=== PATIENT | female | born 1965 | race Caucasian/White ===

== ENCOUNTER 2018-12-30 05:07 | Emergency (ER) | payer BC, OTHER ==
[~2018-12-30] VITALS: Ht 165.1 cm; Wt 63.5 kg
[~2018-12-30 05:07] MED LIST: ALPR1 PO; Celexa40 MG PO; LISI20 PO; PROACE100 PO; TOPI25 PO; VALA500 PO
[2018-12-30] MEDS ORDERED: HYDR1TAB94 PO (05:21)
[2018-12-30] MEDS ORDERED: TRAZ150T57 PO (05:26)
[2018-12-30 05:28] LABS: BASOPHILS ABSOLUTE AUTO 0.05 K/mm3 (0.00-0.23); BASOPHILS PERCENT AUTO 0 % (0-2); EOSINOPHILS ABSOLUTE AUTO 0.12 K/mm3 (0.00-0.68); EOSINOPHILS PERCENT AUTO 1 % (0-6); Hematocrit 44.3 % (33.0-51.0); Hemoglobin 14.5 g/dL (11.5-16.0); IMMATURE GRAN ABSOLUTE AUTO 0.02 K/mm3 (0.00-0.10); IMMATURE GRAN PERCENT AUTO 0 % (0-1); LYMPHOCYTES ABSOLUTE AUTO 4.43 K/mm3 (0.84-5.20); LYMPHOCYTES PERCENT AUTO 32 % (21-46); MONOCYTES ABSOLUTE AUTO 1.08 K/mm3 (0.16-1.47); MONOCYTES PERCENT AUTO 8 % (4-13); Mean Corpuscular HGB Conc 32.7 g/dL (31.5-36.5); Mean Corpuscular Volume 89 fL (80-100); Mean Platelet Volume 9.2 fL (9.1-12.4); NEUTROPHILS ABSOLUTE AUTO 8.32 K/mm3 (1.96-9.15); NEUTROPHILS PERCENT AUTO 59 % (41-73); Platelet Count 253 K/mm3 (150-400); RDW Coefficient Variation 12.5 % (11.7-14.2); RDW Standard Deviation 40.9 fL (35.1-46.3); White Blood Cell Count 14.02 K/mm3 (4.00-11.30)
[2018-12-30 05:33] LABS: Source, Urine Clean Catch
[2018-12-30 05:35] LABS: Bilirubin, Urine Neg (Neg); Blood, Urine 1+ (Neg); Glucose Qualitative, Urine Neg (Neg); Ketones, Urine 2+ (Neg); Leukocyte Esterase, Urine 1+ (Neg); Nitrite, Urine Neg (Neg); Protein, Urine 1+ (Neg); Specific Gravity, Urine 1.025 (1.003-1.022); Urobilinogen, Urine 2+ (Normal)
[2018-12-30 05:49] LABS: Alanine Aminotransfer (ALT/SGP 15 U/L (12-78); Albumin, Blood 3.9 g/dL (3.4-5.0); Albumin/Globulin Ratio 1.2 (0.8-1.8); Alk Phos 89 U/L (50-136); Anion Gap 6 mmol/L (6-16); Aspartate Aminotrans (AST/SGOT 11 U/L (12-37); Bilirubin, Total 0.3 mg/dL (0.1-1.0); Blood Urea Nitrogen 13 mg/dL (8-24); Bun/Creatinine Ratio 15.5 (12.0-20.0); CO2, Blood 27 mmol/L (21-32); Calcium, Blood 8.8 mg/dL (8.5-10.1); Chloride, Blood 109 mmol/L (98-108); Creatinine, Blood 0.84 mg/dL (0.40-1.00); Globulin, Blood 3.3 g/dL (2.2-4.0); Glomerular Filtration Rate >60 (60-); Glucose, Blood 103 mg/dL (70-99); Potassium, Blood 3.9 mmol/L (3.5-5.5); Sodium, Blood 142 mmol/L (136-145); Total Protein, Blood 7.2 g/dL (6.4-8.2)
[2018-12-30 05:50] LABS: Appearance, Urine Clear (Clear); Color, Urine Yellow (P-Yellow)
[2018-12-30 05:54] LABS: Bacteria Rare /hpf; Mucus Light (0-Heavy); Squamous Epithelial Cells Few /hpf (Few); White Blood Cells, Urine 0-2 /hpf (0-5)
== END 2018-12-30 06:46 | disposition home or self-care (01) ==
LOC: ER 05:07
PROVIDERS: Emergency Medicine
DX: K92.2 Gastrointestinal hemorrhage, unspecified (principal); Z79.899 Other long term (current) drug therapy; I10 Essential (primary) hypertension; F32.9 Major depressive disorder, single episode, unspecified; F17.200 Nicotine dependence, unspecified, uncomplicated
CPT/HCPCS: 80053; 81001; 83690; 85025; 87086; 99283

== ENCOUNTER → 2019-01-04 | Outpatient (CLI) | payer BC, OTHER ==
[~2019-01-04] MED LIST changes: +ABILIFY MYCITE2 MG; +CITA20; +HYDR1TAB94 PO; +TRAZ150T57 PO
== END | disposition home or self-care (01) ==
LOC: LAB SHORT 16:12 → LAB EV 16:12
DX: M25.519 Pain in unspecified shoulder (principal)
CPT/HCPCS: G0480

== ENCOUNTER 2019-02-04 12:55 | Day surgery (SDC) | payer BC, OTHER ==
[~2019-02-04] VITALS: Ht 165.1 cm; Wt 58.2 kg
[~2019-02-04 12:55] MED LIST changes: -ABILIFY MYCITE2 MG; -CITA20
[2019-02-04] MEDS ORDERED: ABILIFY MYCITE2 MG (13:23)
[2019-02-04] MEDS ORDERED: CITA20 (13:24)
--- NOTE | 2019-02-04 13:35 | NUR ---
02/04/19 1335 Roxy Gardiner 1 TRY RIGHT HAND VEIN WITH VALVE 2 AC RIGHT ARM GOOD
--- NOTE | 2019-02-04 14:38 | NUR ---
02/04/19 1438 Ifrah Townsend LIDOCAINE JELLY APPLIED TO BUTTOCKS POST-PROCEDURE FOR PATIENT'S 9/10 PAIN RELATED TO PREP.
--- NOTE | 2019-02-04 16:25 | NUR ---
02/04/19 1625 Ifrah Townsend (Ximena 1445: PT INTO RECOVERY, AWAKE AND DENIES PAIN. VITAL SIGNS AT BASELINE, WNL. DR. MCCALLUM INTO ROOM TO CONSULT POST-PROCEDURE. 1456: PT STATES 9/10 ABD PAIN/CRAMPING. THIS NURSE PROVIDED NEW WARM BLANKET, REPOSITIONED, HOT PACK PROVIDED TO PLACE ON ABD, HOT TEA PROVIDED TO HELP WITH CRAMPING. SPOUSE AT BEDSIDE COMFORTING PATIENT. FLACC SCORE OF 2. 1502: VSS; 110/66, 77BPM, 100%, 22R. 1508: VSS; 116/55, 76BPM, 100%, 18R. PT RESTING IN BED, FLACC SCORE OF 2. SPOUSE ATTEMPTING TO CONSOLE PT, RUBBING BACK. 1520: THIS NURSE AND PT SPOUSE SBA PT WITH WALKING IN HALLWAY, X2, IN ATTEMPTS OF IMPROVING ABD CRAMPS. PT STATES NO CHANGE IN PAIN, 9/10. DR. MCCALLUM NOTIFIED OF PATIENT'S COMPLAINT & STATUS. DR. MCCALLUM STATES IS OKAY FOR DISCHARGE. PT AND SPOUSE UPDATED WITH DR. MCCALLUM CONSULT. PT STATES PAIN HAS "SLIGHTLY IMPROVED" TO 8/10, AND "JUST WANTS TO GO HOME." SPOUSE ASSISTED PT IN DRESSING, PER PATIENT'S REQUEST.
== END 2019-02-04 15:45 | disposition home or self-care (01) ==
LOC: ORSCSDS 12:55
PROVIDERS: Surgery
PROC: 0DJD8ZZ Inspection of Lower Intestinal Tract, Via Natural or Artificial Opening Endoscopic (ICD-10-PCS; principal; 2019-02-04 14:15)
DX: R10.84 Generalized abdominal pain (principal); K62.5 Hemorrhage of anus and rectum; K64.1 Second degree hemorrhoids; I10 Essential (primary) hypertension; J45.909 Unspecified asthma, uncomplicated; F17.210 Nicotine dependence, cigarettes, uncomplicated; Z79.899 Other long term (current) drug therapy
CPT/HCPCS: J2704; J7120

== ENCOUNTER 2021-12-03 07:32 | Day surgery (SDC) | payer OTHER ==
[~2021-12-03] VITALS: Ht 165.1 cm; Wt 68.0 kg
[~2021-12-03 07:32] MED LIST changes: +ABILIFY MYCITE2 MG; +CITA20
[2021-12-03] MEDS ORDERED: METF500 (08:07)
== END 2021-12-03 10:52 | disposition home or self-care (01) ==
LOC: ORSCSDS 07:32
PROVIDERS: Orthopaedic Surgery
PROC: 0LX70ZZ Transfer Right Hand Tendon, Open Approach (ICD-10-PCS; principal; 2021-12-03 08:45)
DX: M18.11 Unilateral primary osteoarthritis of first carpometacarpal joint, right hand (principal); I10 Essential (primary) hypertension; Z87.891 Personal history of nicotine dependence; E11.9 Type 2 diabetes mellitus without complications; Z79.84 Long term (current) use of oral hypoglycemic drugs; F41.9 Anxiety disorder, unspecified; Z79.899 Other long term (current) drug therapy
CPT/HCPCS: 82947; A9270; C1713; J0690; J1100; J2250; J2370; J2405; J2704; J2795; J3010; J7120

== ENCOUNTER 2022-07-01 08:37 | Inpatient (IN) | payer OTHER ==
[~2022-07-01] VITALS: Ht 165.1 cm; Wt 71.5 kg
[~2022-07-01 08:37] MED LIST changes: -ABILIFY MYCITE2 MG; +ABILIFY MYCITE2 MG PO; +METF500 PO
[2022-07-01] MEDS ORDERED: BUPR150ER PO (09:14)
[2022-07-01] MEDS ORDERED: DULO60 PO (09:15)
[2022-07-01] MEDS ORDERED: SUMA25 PO (09:16)
[2022-07-01] MEDS ORDERED: ALBU90OI61 INH (09:17)
[2022-07-01] MEDS ORDERED: ONELAX10 MG (09:17)
--- NOTE | 2022-07-01 18:20 | NUR ---
PT STATUS CHANGE TO PCU BED AVAILABLE, REPORT CALLED TO DALE LEY. PT IS A/O, ON ROOM AIR, ON CONTINUOUS CARDIAC MONITORING, SR HR 90'S WITH NO ECTOPY. MAP > 65 DESPITE SBP HIGH 80'S TO LOW 90'S. PT REPORTS NORMAL SBP IS AROUND 100-110. ATE 100% DINNER BROUGHT BY FAMILY. VOIDS USING BSC, SLIGHT SOB WITH ACTIVITY. PIV X1 IN THE RIGHT AC, INFUSING LR AT 100ML/HR. VANCOMYCIN IVPB ALSO INFUSED. AND SON AT BEDSIDE, BOTH UPDATED ON POC AND CURRENT STATUS. PT STATES SHE EXPECTS TO D/C HOME IN NEXT 1-2 DAYS AND IS FEELING MUCH BETTER SINCE THE IV FLUID BOLUSES. TRANSPORTED TO PCU #6 VIA W/C WITH BELONGINGS. BROUGHT IN PT'S DENTURES, ADVISED TABLE INSPECTOR. ALL VALUABLE BELONGINGS HOME WITH .
--- NOTE | 2022-07-01 18:24 | NUR ---
PT TRANSFERRED TO PCU ROOM VIA WHEELCHAIR, REPORT RECEIVED FROM OCTAVIO HUNTER. PT SETTLED IN THE ROOM, NO CURRENT COMPLAINS AT THIS TIME, WILL MONITOR UNTIL SHIFT CHNAGE
--- NOTE | 2022-07-01 21:28 | NUR ---
TRANSFER TO ICU3 ASSUMPED CARE OF AT 1900. PT A&Ox4, CALLS AND COMMUNICATES NEEDS APPROPRIATELY. SpO2> 92% ON RA, SOB AT TIMES. LUNGS CLEAR, DIM IN BASES, NOT COARSE AND NO CRACKLES. PT WITH OCCASTIONAL, NONPRODUCTIVE COUGH. SR-ST 90-100's, DENIES CP/PRESSURE. BP SOFT WITH SBP 70-80's, MAP 50-60's, PT ASYMPTOMATIC. PHYSICIAN NOTIFIED, ORDERS PLACED. BP REMAINING SOFT AFTER 500mL BOLUS, PHYSICIAN NOTIFIED, COMING TO BEDSIDE. ORDERS PLACE TO TRANSFER TO ICU. AT APPROXIMATELY 2100, TRANSFERED PT TO ICU3 VIA HOSPITAL BED BY THIS RN AND BIOLOGICAL SCIENTIST. ALL PT BELONGING PRESENT. REPORT GIVEN TO DALE ACUNA AT BEDSIDE.
--- NOTE | 2022-07-01 22:11 | NUR ---
PT TRANSFER TO ICU 3: PT TRANSFERRED FROM PCU TO ICU 3 FOR HYPOTENSION. PT ARRIVED TO THE UNIT AT 2057. SBP UPON ARRIVAL IN THE 80'S WITH MAP 67. PT CURRENTLY ON RA WITH SPO2 90<; PT LUNG SOUNDS ARE CLEAR WITH DIM BASES, NO C/O SOB AT THIS TIME. PT DESATS WITH GROSS MOVEMENTS AND DURING COUGHING EPISODES DOWN TO 86 BUT RECOVERS QUICKLY. PT SR ON MONITOR WITH HR 90'S, NO C/O CHEST PAIN AT THIS TIME. PT ABD SOFT, NON-TENDER WITH HYPOACTIVE BOWEL SOUNDS. PT CONTINENT AT THIS TIME. PPP X 4; PG IN LUQ AND PIV IN RAC. SKIN WARM AND INTACT. BED LOWERED, CALL LIGHT IN REACH, WILL CONTINUE TO MONITOR.
[2022-07-02 04:17] LABS: Hematocrit 30.5 % (33.0-51.0); Hemoglobin 10.2 g/dL (11.5-16.0); Mean Corpuscular HGB 27.9 pg (26.0-34.0); Mean Corpuscular HGB Conc 33.4 g/dL (31.5-36.5); Mean Corpuscular Volume 83 fL (80-100); Mean Platelet Volume 9.2 fL (9.1-12.4); Platelet Count 188 K/mm3 (150-400); RDW Coefficient Variation 13.8 % (11.7-14.2); RDW Standard Deviation 42.5 fL (35.1-46.3); Red Blood Cell Count 3.66 M/mm3 (3.80-5.20)
[2022-07-02 05:17] LABS: BAND PERCENT MAN 5 % (0-8); BASOPHILS PERCENT MAN 0 % (0-2); EOSINOPHILS PERCENT MAN 0 % (0-6); LYMPHOCYTES ABSOLUTE MAN 1.69 K/mm3 (0.84-5.20); LYMPHOCYTES PERCENT MAN 13 % (21-46); MONOCYTES ABSOLUTE MAN 0.91 K/mm3 (0.16-1.47); MONOCYTES PERCENT MAN 7 % (4-13); SEG NEUTROPHILS PERCENT MAN 75 % (41-73); TOTAL CELLS COUNTED 100
[2022-07-02 05:49] LABS: Albumin, Blood 1.8 g/dL (3.4-5.0); Albumin/Globulin Ratio 0.6 (0.8-1.8); Bilirubin, Total 0.3 mg/dL (0.1-1.0); Bun/Creatinine Ratio 17.4 (12.0-20.0); Calcium, Blood 7.9 mg/dL (8.5-10.1); Creatinine, Blood 0.8 mg/dL (0.40-1.00); Globulin, Blood 3.1 g/dL (2.2-4.0); Potassium, Blood 3.4 mmol/L (3.5-5.5); Total Protein, Blood 4.9 g/dL (6.4-8.2)
--- NOTE | 2022-07-02 05:53 | NUR ---
SHIFT SUMMARY: NO ACUTE CHANGES OVERNIGHT. PT BP STABILIZED AFTER TRANSFERRING TO UNIT; CURRENTLY SBP 100-110 WITH MAP 70<. OTHER VSS THROUGHOUT THE SHIFT. PT ABLE TO SLEEP THROUGHOUT THIS NIGHT. LR INFUSION CONTINUES AT 100 MLS/HR/ BED LOWERED, WILL CONTINUE TO MONITOR UNTIL ONCOMING RN ARRIVES.
--- NOTE | 2022-07-02 07:18 | NUR ---
Received report from Noc RN. Patient is resting in bed and awakens easily to Verbal stimuli and is able to communicate her needs. She is on3L O2 via NC and sats 94%. She has 20ga IV to RAC and is flushed and SL'd. She also has 18ga PowerGlide to REZA and is infusing LR TKO. She has temporal temp of 95.3. She MAEW and is a one person SBA to bathroom privledges. VSS.
--- NOTE | 2022-07-02 09:29 | NUR ---
Dr Neri by to [facility] patient. She was up to bathroom independently and tolerated well. She tolerated am meds and breakfast well. MAEW. She remains on 3L O2 via NC and sats 94%. She is now medical no tele and orsers are in. She has intermitent dry cough.
--- NOTE | 2022-07-02 11:15 | NUR ---
Report given to Med RN. Patient is sleeping now that son and significant other went home. No significant changes with patient. She had several hypotensive BP, but is currently 117. All belongings sent with patient and she self ambulated to wheelchair and was taken to med 342.
--- NOTE | 2022-07-02 19:49 | NUR ---
TRANSFER AND SHIFT SUMMARY: PT TRANSFERED FROM ICU-3 VIA , ESCORTED BY BREAKDOWN WORKER. PT TRANSFERED OUT OF WITH SBA ASSIST TO THE BED. PT HAD NO FLUIDS RUNNING, AND PT ONOXYGEN 3L NC. PT HAD A NON-PRODUCTIVE COUGH WITH BACK AND CHEST PAIN RELATED TO CONSTANT COUGHING. PT MEDICATED WITH DIALAUDID IV 0.5MG Q2HRS FOR PAIN, ON REASSSESMENT PT HAD A DECREASE IN PAIN. PT ABLE TO AMBULATED TO THE RESTROOM SBA AND CONTINENT OF URINE AND BOWEL. PT HAD SON AT BEDSIDE FOR SUPPORT AND CARE. PT RESTING IN BED WITH CALL LIGHT WITHIN REACH.
--- NOTE | 2022-07-03 04:24 | NUR ---
LEGAL REFEREE SUMMARY PT A/OX4. NO ACTUE CHANGES. VSS. ABLE TO MAKE NEEDS KNOWN. PT CONT TO C/O PAIN WHEN COUGHING/DEEP BREATHING. MED P/EMAR. CALL LIGHT ACCESSIBLE.
[2022-07-03 05:39] LABS: BASOPHILS ABSOLUTE AUTO 0.04 K/mm3 (0.00-0.23); BASOPHILS PERCENT AUTO 1 % (0-2); EOSINOPHILS ABSOLUTE AUTO 0.16 K/mm3 (0.00-0.68); EOSINOPHILS PERCENT AUTO 2 % (0-6); Hematocrit 30.2 % (33.0-51.0); Hemoglobin 10.4 g/dL (11.5-16.0); IMMATURE GRAN ABSOLUTE AUTO 0.18 K/mm3 (0.00-0.10); IMMATURE GRAN PERCENT AUTO 2 % (0-1); LYMPHOCYTES ABSOLUTE AUTO 1.86 K/mm3 (0.84-5.20); LYMPHOCYTES PERCENT AUTO 22 % (21-46); MONOCYTES ABSOLUTE AUTO 1.19 K/mm3 (0.16-1.47); MONOCYTES PERCENT AUTO 14 % (4-13); Mean Corpuscular HGB 28.2 pg (26.0-34.0); Mean Corpuscular HGB Conc 34.4 g/dL (31.5-36.5); Mean Corpuscular Volume 82 fL (80-100); Mean Platelet Volume 9.1 fL (9.1-12.4); NEUTROPHILS ABSOLUTE AUTO 5.19 K/mm3 (1.96-9.15); NEUTROPHILS PERCENT AUTO 60 % (41-73); Platelet Count 222 K/mm3 (150-400); RDW Coefficient Variation 13.9 % (11.7-14.2); RDW Standard Deviation 41.6 fL (35.1-46.3); Red Blood Cell Count 3.69 M/mm3 (3.80-5.20); White Blood Cell Count 8.62 K/mm3 (4.00-11.30)
[2022-07-03 06:04] LABS: Albumin, Blood 1.8 g/dL (3.4-5.0); Albumin/Globulin Ratio 0.5 (0.8-1.8); Bilirubin, Total 0.4 mg/dL (0.1-1.0); Bun/Creatinine Ratio 12.9 (12.0-20.0); Calcium, Blood 8.2 mg/dL (8.5-10.1); Creatinine, Blood 0.54 mg/dL (0.40-1.00); Globulin, Blood 3.8 g/dL (2.2-4.0); Potassium, Blood 3.1 mmol/L (3.5-5.5); Total Protein, Blood 5.6 g/dL (6.4-8.2)
--- NOTE | 2022-07-03 18:49 | NUR ---
SHIFT SUMMARY- PT IS A/O, PLESANT AND COOPERATIVE. SHE IS EATING AND DRINKING WELL. SHE IS INDEPENDENT TO THE RESTROOM. SHE IS RECIEVING IV ABX. HER BED IS IN THE LOW POSITION AND CALL LIGHT IS WITIN REACH.
[2022-07-04 06:04] LABS: BASOPHILS ABSOLUTE AUTO 0.04 K/mm3 (0.00-0.23); BASOPHILS PERCENT AUTO 1 % (0-2); EOSINOPHILS ABSOLUTE AUTO 0.14 K/mm3 (0.00-0.68); EOSINOPHILS PERCENT AUTO 2 % (0-6); Hematocrit 30.3 % (33.0-51.0); Hemoglobin 10.4 g/dL (11.5-16.0); IMMATURE GRAN ABSOLUTE AUTO 0.26 K/mm3 (0.00-0.10); IMMATURE GRAN PERCENT AUTO 3 % (0-1); LYMPHOCYTES ABSOLUTE AUTO 1.83 K/mm3 (0.84-5.20); LYMPHOCYTES PERCENT AUTO 22 % (21-46); MONOCYTES ABSOLUTE AUTO 1.27 K/mm3 (0.16-1.47); MONOCYTES PERCENT AUTO 15 % (4-13); Mean Corpuscular HGB 28.2 pg (26.0-34.0); Mean Corpuscular HGB Conc 34.3 g/dL (31.5-36.5); Mean Corpuscular Volume 82 fL (80-100); Mean Platelet Volume 9.1 fL (9.1-12.4); NEUTROPHILS PERCENT AUTO 57 % (41-73); Platelet Count 248 K/mm3 (150-400); RDW Coefficient Variation 13.9 % (11.7-14.2); RDW Standard Deviation 41.3 fL (35.1-46.3); Red Blood Cell Count 3.69 M/mm3 (3.80-5.20); White Blood Cell Count 8.24 K/mm3 (4.00-11.30)
[2022-07-04 06:25] LABS: Albumin, Blood 1.8 g/dL (3.4-5.0); Albumin/Globulin Ratio 0.5 (0.8-1.8); Bilirubin, Total 0.4 mg/dL (0.1-1.0); Bun/Creatinine Ratio 9.3 (12.0-20.0); Calcium, Blood 8.4 mg/dL (8.5-10.1); Creatinine, Blood 0.54 mg/dL (0.40-1.00); Globulin, Blood 3.8 g/dL (2.2-4.0); Potassium, Blood 3.3 mmol/L (3.5-5.5); Total Protein, Blood 5.6 g/dL (6.4-8.2)
--- NOTE | 2022-07-04 06:44 | NUR ---
PHD INTERNSHIP SUMMARY: A&Ox4. PLEASANT AND COOPERATIVE WITH CARE. CALLS APPROPRIATELY AND IS ABLE TO COMMUNICATE NEEDS EFFECTIVELY. CONTINUES WITH INTERMITTENT C / O RIGHT PLEURITIC PAIN, ESPECIALLY WHEN COUGHING. PRN DILAUDID GIVEN ONCE. DECLINED NEED FOR DOSING THIS AM. CONTINUES TO RECEIVE IV PCN q4h. BPs RUNNING SOFT, THOUGH ASYMPTOMATIC. LABS DRAWN THIS AM; NO CRITICAL RESULTS RECEIVED AT THIS TIME. WILL REPORT TO ONCOMING RN.
--- NOTE | 2022-07-04 18:19 | NUR ---
SHIFT SUMMARY IS A&O X 4. VSS. ON 2 L'S O2 WITH SATS >95%. RT TRIALED PT ON RA WITH SATS 94%. PT REMAINS ON RA. MEDICATED FOR C/O PAIN/DISCOMFORT FROM PNEUMONIA COUGH WITH PT STATING GOOD RELIEF. WAS ABLE TO SHOWER THIS AFTERNOON. APPETITE IS GOOD. Q4 HR ANTIBIOTICS GIVEN PER EMAR.
[2022-07-05 05:25] LABS: Hematocrit 28.9 % (33.0-51.0); Hemoglobin 9.9 g/dL (11.5-16.0); Mean Corpuscular HGB Conc 34.3 g/dL (31.5-36.5); Mean Corpuscular Volume 82 fL (80-100); Mean Platelet Volume 9.1 fL (9.1-12.4); Platelet Count 267 K/mm3 (150-400); RDW Coefficient Variation 14.2 % (11.7-14.2); RDW Standard Deviation 42.7 fL (35.1-46.3); Red Blood Cell Count 3.54 M/mm3 (3.80-5.20); White Blood Cell Count 8.44 K/mm3 (4.00-11.30)
[2022-07-05 06:03] LABS: Albumin, Blood 1.8 g/dL (3.4-5.0); Albumin/Globulin Ratio 0.5 (0.8-1.8); Bilirubin, Total 0.3 mg/dL (0.1-1.0); Bun/Creatinine Ratio 10.4 (12.0-20.0); Calcium, Blood 8.3 mg/dL (8.5-10.1); Creatinine, Blood 0.58 mg/dL (0.40-1.00); Globulin, Blood 3.7 g/dL (2.2-4.0); Potassium, Blood 3.5 mmol/L (3.5-5.5); Total Protein, Blood 5.5 g/dL (6.4-8.2)
[2022-07-05 06:13] LABS: BASOPHILS PERCENT MAN 0 % (0-2); EOSINOPHILS ABSOLUTE MAN 0.42 K/mm3 (0.00-0.68); EOSINOPHILS PERCENT MAN 5 % (0-6); LYMPHOCYTES PERCENT MAN 19 % (21-46); MONOCYTES PERCENT MAN 19 % (4-13); MYELOCYTE ABSOLUTE MAN 0.33 K/mm3 (0.00-0.00); MYELOCYTE PERCENT MAN 4 % (0-0); NEUTROPHILS ABSOLUTE MAN 4.47 K/mm3 (1.96-9.15); SEG NEUTROPHILS PERCENT MAN 53 % (41-73); TOTAL CELLS COUNTED 100
--- NOTE | 2022-07-05 07:24 | NUR ---
ALERT AND ORIENTED, ROOM AIR, NO TELE, INDEPENDENT, REZA PICC, MECHANICAL SOFT DIET, MEDICATED PER EMAR FOR PAIN, NO EVENTS OVERNIGHT
[2022-07-05] MEDS ORDERED: POTCHL20ER PO (13:26)
[2022-07-05] MEDS ORDERED: UP4 PROBIOTICS1 EAC8 PO (13:27)
[2022-07-05] MEDS ORDERED: CEFD300 PO (13:28)
[2022-07-05] MEDS ORDERED: ACET325 PO (13:31)
--- NOTE | 2022-07-05 14:13 | NUR ---
DC HOME WRITTEN & VERBAL DC INSTRUCTIONS GIVN TO PT WITH SON PRESENT, PT VERBALIZED GOOD UNDERSTANDING. ALL CONCERNS & QUESTIONS ADDRESSED. MED SCRIPTS FAXED TO [facility] PER PT REQUEST. PIV DC'D WITH CATH TIP INTACT, NO REDNESS OR SWELLING NOTED. PT TO PV VIA W/C WITH ALL PERSONAL BELONGINGS ACCOMPANIED BY SON.
== END 2022-07-05 14:03 | disposition home or self-care (01) | DRG 871 ==
LOC: ER 08:37 → ICUE 12:38 → ICUW 12:38 → ICUE 14:42 → PCU 17:47 → ICUE 20:45 → MEDS 07-02 12:00
PROVIDERS: ADMIT Family Medicine
PROC: 3E03329 Introduction of Other Anti-infective into Peripheral Vein, Percutaneous Approach (ICD-10-PCS; principal; 2022-07-01)
PROC: 3E033XZ Introduction of Vasopressor into Peripheral Vein, Percutaneous Approach (ICD-10-PCS; 2022-07-01)
DX: A40.3 Sepsis due to Streptococcus pneumoniae (principal); J18.9 Pneumonia, unspecified organism; R65.21 Severe sepsis with septic shock; K72.00 Acute and subacute hepatic failure without coma; N17.9 Acute kidney failure, unspecified; F17.213 Nicotine dependence, cigarettes, with withdrawal; R74.8 Abnormal levels of other serum enzymes; Z66 Do not resuscitate; E87.6 Hypokalemia; G47.00 Insomnia, unspecified; R73.03 Prediabetes; J43.9 Emphysema, unspecified; R74.01 Elevation of levels of liver transaminase levels; I10 Essential (primary) hypertension; F32.9 Major depressive disorder, single episode, unspecified; Z88.5 Allergy status to narcotic agent; Z79.899 Other long term (current) drug therapy; Z79.84 Long term (current) use of oral hypoglycemic drugs; Z98.890 Other specified postprocedural states; Z90.710 Acquired absence of both cervix and uterus; Z20.822 Contact with and (suspected) exposure to COVID-19
CPT/HCPCS: 36415; 71046; 71260; 80053; 83605; 84484; 85025; 87040; 87070; 87205; 87449; 93005; 93010; 94640; 94664; 94760; 96365; 96366; 96367; 96375; 97110; 97161; 97165; 97530; 99285-25; A9270; C1751; J0692; J1170; J1650; J1885; J2540; J3370; J7030; J7040; J7050; J7060; J7120; Q9967

== ENCOUNTER 2022-09-25 03:34 | Emergency (ER) | payer OTHER ==
[~2022-09-25 03:34] MED LIST changes: +ACET325 PO; +ALBU90OI61 INH; +BUPR150ER PO; +CEFD300 PO; +DULO60 PO; +ONELAX10 MG; +POTCHL20ER PO; +SUMA25 PO; +UP4 PROBIOTICS1 EAC8 PO
[2022-09-25 05:47] VITALS: BP 159/73
[2022-09-25] MEDS ORDERED: ONDA4ODT MM (07:20)
[2022-09-25] MEDS ORDERED: OXAYDO5 M1 PO (07:20)
[2022-09-25] MEDS ORDERED: TAMS.4ER PO (07:20)
[2022-09-25 07:51] LABS: Appearance, Urine Clear (Clear); Bilirubin, Urine 1+ (Neg); Blood, Urine 4+ (Neg); Color, Urine Yellow (P-Yellow); Glucose Qualitative, Urine Neg (Neg); Ketones, Urine Neg (Neg); Leukocyte Esterase, Urine Neg (Neg); Nitrite, Urine Neg (Neg); Protein, Urine 2+ (Neg); Source, Urine Clean Catch; Urobilinogen, Urine 1+ (Normal)
[2022-09-25 07:52] LABS: Bacteria Few /hpf; Squamous Epithelial Cells Rare /hpf (Few); White Blood Cells, Urine 0-2 /hpf (0-5)
[2022-09-25 08:29] LABS: Albumin, Blood 3.7 g/dL (3.4-5.0); Albumin/Globulin Ratio 1.1 (0.8-1.8); Bilirubin, Total 0.3 mg/dL (0.1-1.0); Bun/Creatinine Ratio 15.9 (12.0-20.0); Calcium, Blood 8.8 mg/dL (8.5-10.1); Creatinine, Blood 1.13 mg/dL (0.40-1.00); Globulin, Blood 3.3 g/dL (2.2-4.0)
[2022-09-25 09:26] LABS: BASOPHILS ABSOLUTE AUTO 0.05 K/mm3 (0.00-0.23); BASOPHILS PERCENT AUTO 0 % (0-2); EOSINOPHILS ABSOLUTE AUTO 0.25 K/mm3 (0.00-0.68); EOSINOPHILS PERCENT AUTO 2 % (0-6); Hematocrit 41.5 % (33.0-51.0); Hemoglobin 13.4 g/dL (11.5-16.0); IMMATURE GRAN ABSOLUTE AUTO 0.03 K/mm3 (0.00-0.10); IMMATURE GRAN PERCENT AUTO 0 % (0-1); LYMPHOCYTES ABSOLUTE AUTO 4.77 K/mm3 (0.84-5.20); LYMPHOCYTES PERCENT AUTO 41 % (21-46); MONOCYTES ABSOLUTE AUTO 0.98 K/mm3 (0.16-1.47); MONOCYTES PERCENT AUTO 8 % (4-13); Mean Corpuscular HGB Conc 32.3 g/dL (31.5-36.5); Mean Corpuscular Volume 84 fL (80-100); Mean Platelet Volume 8.9 fL (9.1-12.4); NEUTROPHILS ABSOLUTE AUTO 5.69 K/mm3 (1.96-9.15); NEUTROPHILS PERCENT AUTO 48 % (41-73); Platelet Count 311 K/mm3 (150-400); RDW Standard Deviation 39.3 fL (35.1-46.3); Red Blood Cell Count 4.96 M/mm3 (3.80-5.20); White Blood Cell Count 11.77 K/mm3 (4.00-11.30)
== END 2022-09-25 08:02 | disposition home or self-care (01) ==
LOC: ER 03:34
PROVIDERS: Student in an Organized Health Care Education/Training Program
DX: N13.2 Hydronephrosis with renal and ureteral calculous obstruction (principal); I10 Essential (primary) hypertension; F17.210 Nicotine dependence, cigarettes, uncomplicated
CPT/HCPCS: 74177; 80053; 81001; 85025; A9270; J7030; Q9967

== ENCOUNTER 2022-11-07 13:32 | Day surgery (SDC) | payer OTHER ==
[~2022-11-07] VITALS: Ht 165.1 cm; Wt 68.3 kg
[~2022-11-07 13:32] MED LIST changes: +ONDA4ODT MM; +OXAYDO5 M1 PO; +TAMS.4ER PO
[2022-11-07] MEDS ORDERED: PANT20 (13:51)
[2022-11-07 14:56] VITALS: BP 124/67
== END 2022-11-07 14:58 | disposition home or self-care (01) ==
LOC: ORSCSDS 13:32
PROVIDERS: Surgery
PROC: 0DB68ZX Excision of Stomach, Via Natural or Artificial Opening Endoscopic, Diagnostic (ICD-10-PCS; principal; 2022-11-07 14:30)
PROC: 0DB58ZX Excision of Esophagus, Via Natural or Artificial Opening Endoscopic, Diagnostic (ICD-10-PCS; principal; 2022-11-07 14:30)
DX: K21.9 Gastro-esophageal reflux disease without esophagitis (principal); K44.9 Diaphragmatic hernia without obstruction or gangrene; R11.10 Vomiting, unspecified; F32.A Depression, unspecified; R73.03 Prediabetes; F17.210 Nicotine dependence, cigarettes, uncomplicated; Z79.84 Long term (current) use of oral hypoglycemic drugs; Z79.899 Other long term (current) drug therapy
CPT/HCPCS: 82947; 88305; 88342; J2704; J7120

== ENCOUNTER → 2023-01-20 | Outpatient (CLI) | payer OTHER ==
[~2023-01-20] MED LIST changes: +PANT20
[2023-01-24 14:08] LABS: COTININE <10.0 ng/mL (.); NICOTINE <10.0 ng/mL (.)
== END ==
LOC: LAB 09:07 → LAB SHORT 09:07
PROVIDERS: Surgery
DX: K44.9 Diaphragmatic hernia without obstruction or gangrene (principal); K21.9 Gastro-esophageal reflux disease without esophagitis; Z72.0 Tobacco use
CPT/HCPCS: G0480

== ENCOUNTER 2023-03-05 06:01 | Inpatient (IN) | payer OTHER ==
[2023-03-05] VITALS (16 sets, daily range): BP systolic 92–132; BP diastolic 48–75
[~2023-03-05] VITALS: Ht 165.1 cm; Wt 68.5 kg
[2023-03-05] MEDS ORDERED: FAMO20 PO (07:05)
[2023-03-05] MEDS ORDERED: Amoxicillin500 MG PO (07:06)
--- NOTE | 2023-03-05 07:39 | NUR ---
History, Chart, Medications and Allergies reviewed before start of procedure. Ambulatory in Day Surgery. Pre-Op teaching done. Pt verbalizes understanding. Patient confirms NPO status and agrees with scheduled surgery. Lungs clear T/O to Auscultation. Surgical site prepped with 2% Chlorhexidine cloth wipe. Patient States Post-Procedure ride home has been arranged.
--- NOTE | 2023-03-05 15:43 | NUR ---
SHIFT SUMMARY PT POD 0 RUTHIE SORAYA W/PARTIAL FUNDOPLICATION. LAP SITES X'S 4 W/WOUND GLUE D/I. PT MEDICATED ONCE FOR PAIN WITH 0.5MG DILAUDID IVP. TOLERATING CLEAR LIQUIDS WITH NO N/V-PER MD ORDER WILL ADVANCE TO FULL LIQUID FOR DINNER. SBA TO BATHROOM.
--- NOTE | 2023-03-05 16:37 | NUR ---
REPORT RECEIVED FROM DALE TURNER
[2023-03-06 00:11] VITALS: BP 99/74
[2023-03-06 03:09] VITALS: BP 115/77
[2023-03-06 04:54] LABS: BASOPHILS ABSOLUTE AUTO 0.01 K/mm3 (0.00-0.23); BASOPHILS PERCENT AUTO 0 % (0-2); EOSINOPHILS PERCENT AUTO 0 % (0-6); Hematocrit 35.5 % (33.0-51.0); Hemoglobin 11.6 g/dL (11.5-16.0); IMMATURE GRAN ABSOLUTE AUTO 0.02 K/mm3 (0.00-0.10); IMMATURE GRAN PERCENT AUTO 0 % (0-1); LYMPHOCYTES ABSOLUTE AUTO 2.12 K/mm3 (0.84-5.20); LYMPHOCYTES PERCENT AUTO 24 % (21-46); MONOCYTES ABSOLUTE AUTO 0.87 K/mm3 (0.16-1.47); MONOCYTES PERCENT AUTO 10 % (4-13); Mean Corpuscular HGB 27.7 pg (26.0-34.0); Mean Corpuscular HGB Conc 32.7 g/dL (31.5-36.5); Mean Corpuscular Volume 85 fL (80-100); Mean Platelet Volume 9.4 fL (9.1-12.4); NEUTROPHILS ABSOLUTE AUTO 5.67 K/mm3 (1.96-9.15); NEUTROPHILS PERCENT AUTO 65 % (41-73); Platelet Count 221 K/mm3 (150-400); RDW Coefficient Variation 12.8 % (11.7-14.2); RDW Standard Deviation 39.5 fL (35.1-46.3); Red Blood Cell Count 4.19 M/mm3 (3.80-5.20); White Blood Cell Count 8.69 K/mm3 (4.00-11.30)
[2023-03-06 05:25] LABS: Magnesium, Blood 2.4 mg/dL (1.6-2.4)
[2023-03-06 05:26] LABS: Bun/Creatinine Ratio 11.5 (12.0-20.0); Creatinine, Blood 0.78 mg/dL (0.40-1.00); Potassium, Blood 4.1 mmol/L (3.5-5.5)
--- NOTE | 2023-03-06 05:58 | NUR ---
SHIFT SUMMARY NOC. PT POD 1 FOR PARTIAL FUNDIPLICATION. PT A/O X4. PT TOLERATING CLEAR LIQUIDS, AND VOIDING URINE. PT UP TO THE BATHROOM WITH SBA. PT WEANED OFF O2 AND SAT REMAINED ABOVE 90%. 4 LAP SITES CLEAN, DRY, INTACT, AND OPEN TO AIR. PT MEDICATED FOR PAIN WITH RELIEF OF SYMPTOMS. BP WAS IN THE HIGH 90'S SYSTOLIC A COUPLE TIMES. PT ASYMPTOMATIC WITH NO DIZZINESS, SOB, OR CP AT THESES TIMES. PT'S FLUIDS RUNNING AND BP IMPROVED. PT RESTED WITH EYES CLOSED AND CALL LIGHT IN REACH.
[2023-03-06 06:05] VITALS: BP 123/79
[2023-03-06 07:29] VITALS: BP 121/73
[2023-03-06] MEDS ORDERED: Percocet 5-3251 EACH PO (13:24)
--- NOTE | 2023-03-06 16:22 | NUR ---
PATIENT DISCHARGED AT 1400. LHA IV AND RAC IV REMOVED. DIET HANDOUT AND PROCEDURE INFORMATION PROVIDED TO PATIENT AT [facility]. PATIENT MEDICATED PER EMAR FOR PAIN MANAGEMENT AT DISCHARGE. PATIENT ESCORTED OUT IN WHEEL CHAIR BY LASHAWN. SPOUSE ADA BYRD.
== END 2023-03-06 14:07 | disposition home or self-care (01) | DRG 328 ==
LOC: SURS 06:01 → PRE IP 07:30 → SURS 10:35
PROVIDERS: ADMIT Surgery
PROC: 0DV44ZZ Restriction of Esophagogastric Junction, Percutaneous Endoscopic Approach (ICD-10-PCS; 2023-03-05)
PROC: 8E0W4CZ Robotic Assisted Procedure of Trunk Region, Percutaneous Endoscopic Approach (ICD-10-PCS; 2023-03-05)
PROC: 0BQT4ZZ Repair Diaphragm, Percutaneous Endoscopic Approach (ICD-10-PCS; principal; 2023-03-05 07:30)
DX: K44.9 Diaphragmatic hernia without obstruction or gangrene (principal); K21.9 Gastro-esophageal reflux disease without esophagitis; F32.A Depression, unspecified; G47.00 Insomnia, unspecified; F32.9 Major depressive disorder, single episode, unspecified; G43.909 Migraine, unspecified, not intractable, without status migrainosus; R73.03 Prediabetes; J43.9 Emphysema, unspecified; Z98.890 Other specified postprocedural states; Z87.891 Personal history of nicotine dependence; Z90.710 Acquired absence of both cervix and uterus; Z79.899 Other long term (current) drug therapy; Z79.51 Long term (current) use of inhaled steroids; Z79.84 Long term (current) use of oral hypoglycemic drugs; Z88.5 Allergy status to narcotic agent
CPT/HCPCS: 36415; 80048; 82947; 83735; 85025; 94762; A9270; J1100; J1170; J1650; J1885; J2250; J2371; J2405; J2704; J3010; J7120

== ENCOUNTER → 2024-01-27 | Outpatient (CLI) | payer OTHER ==
[~2024-01-27] MED LIST changes: +ABILIFY MYCITE10 M2 PO; +ALBU2.5V5 INH; +ALBU90OI INH; -ALBU90OI61 INH; +Amoxicillin500 MG PO; +CYMBALTA60 M1 PO; +FAMO20 PO; +FLUDROCORTISON0.1 M1 PO; +PRED20 PO; +Percocet 5-3251 EACH PO; +SPIRIVA RESPIMAT4 G3 INH; +TRAZ100 PO
[2024-01-27 18:51] LABS: Calcium, Urine 24.9 mg/dL (< 17.5); Calcium, Urine Calculation 174.3 mg/24hrs (42.0-353.0)
== END | disposition home or self-care (01) ==
LOC: LAB SHORT 07:10 → LAB 07:10
PROVIDERS: Internal Medicine Endocrinology, Diabetes & Metabolism
DX: M81.0 Age-related osteoporosis without current pathological fracture (principal)
CPT/HCPCS: 81050; 82340; 82570

== ENCOUNTER 2025-04-05 17:40 | Emergency (ER) | payer OTHER ==
[~2025-04-05] VITALS: Ht 165.1 cm; Wt 51.7 kg
[2025-04-05 17:56] VITALS: BP 137/91
[2025-04-05 18:11] LABS: BASOPHILS ABSOLUTE AUTO 0.03 K/mm3 (0.00-0.23); BASOPHILS PERCENT AUTO 0 % (0-2); EOSINOPHILS ABSOLUTE AUTO 0.08 K/mm3 (0.00-0.68); EOSINOPHILS PERCENT AUTO 1 % (0-6); Hematocrit 40.4 % (33.0-51.0); Hemoglobin 13.6 g/dL (11.5-16.0); IMMATURE GRAN ABSOLUTE AUTO 0.02 K/mm3 (0.00-0.10); IMMATURE GRAN PERCENT AUTO 0 % (0-1); LYMPHOCYTES ABSOLUTE AUTO 3.38 K/mm3 (0.84-5.20); LYMPHOCYTES PERCENT AUTO 42 % (21-46); MONOCYTES ABSOLUTE AUTO 0.67 K/mm3 (0.16-1.47); MONOCYTES PERCENT AUTO 8 % (4-13); Mean Corpuscular HGB Conc 33.7 g/dL (31.5-36.5); Mean Corpuscular Volume 84 fL (80-100); NEUTROPHILS ABSOLUTE AUTO 3.79 K/mm3 (1.96-9.15); NEUTROPHILS PERCENT AUTO 48 % (41-73); NRBC ABSOLUTE 0.00 K/mm3 (0.00-0.02); NRBC Auto 0.0 /100 WBC (0.0-0.2); Platelet Count 265 K/mm3 (150-400); RDW Coefficient Variation 12.2 % (11.7-14.2); RDW Standard Deviation 37.2 fL (35.1-46.3)
[2025-04-05 18:45] LABS: Alanine Aminotransfer (ALT/SGP 21.0 U/L (12-78); Albumin, Blood 3.8 g/dL (3.4-5.0); Albumin/Globulin Ratio 1.1 (0.8-1.8); Anion Gap 7.0 mmol/L (3-11); Aspartate Aminotrans (AST/SGOT 17.0 U/L (12-37); Bilirubin, Total 0.3 mg/dL (0.1-1.0); Blood Urea Nitrogen 11.0 mg/dL (8-24); CO2, Blood 29.0 mmol/L (21-32); Calcium, Blood 8.7 mg/dL (8.5-10.1); Chloride, Blood 107.0 mmol/L (98-108); Creatinine, Blood 0.92 mg/dL (0.40-1.00); Globulin, Blood 3.4 g/dL (2.2-4.0); Glucose, Blood 84.0 mg/dL (70-99); Magnesium, Blood 2.2 mg/dL (1.6-2.4); Potassium, Blood 3.7 mmol/L (3.5-5.5); Sodium, Blood 139.0 mmol/L (136-145); Total Protein, Blood 7.2 g/dL (6.4-8.2)
== END 2025-04-05 19:46 | disposition left against medical advice (07) ==
LOC: ER 17:40
PROVIDERS: Student in an Organized Health Care Education/Training Program
DX: R07.9 Chest pain, unspecified (principal); R06.02 Shortness of breath; I10 Essential (primary) hypertension; F17.210 Nicotine dependence, cigarettes, uncomplicated; Z53.21 Procedure and treatment not carried out due to patient leaving prior to being seen by health care provider; Z88.5 Allergy status to narcotic agent; Z79.84 Long term (current) use of oral hypoglycemic drugs; Z79.899 Other long term (current) drug therapy
CPT/HCPCS: 71045; 80053; 83735; 84484; 85025; 93005; 93010; 99285-25